=== PATIENT | male | born 1945 | race Caucasian/White ===

== ENCOUNTER → 2016-11-27 | Day surgery (SDC) | payer OTHER ==
[~2016-11-27] MED LIST: BUPIVACAINE HCL PF 0.75% 30 ML VIAL ONE; KETOROLAC TROMETHAMINE 30 MG/ML (IVP) VIAL IV PUSH ONE; LACTATED RINGER'S 1000 ML INJ 1,000 ML IV ONE; LACTATED RINGER'S 1000 ML INJ 1,000 ML ONE; LIDOCAINE 1.5%/EPINEPHrine 1:200,000 PF SOLN 30 ML AMP ONE; MIDAZOLAM HCL 5 MG/5 ML VIAL ONE; ONDANSETRON HCL 4 MG/2 ML VIAL IV PUSH ONE; PROPOFOL 200 MG/20 ML AMP IV ONE; SODIUM CHLORIDE 0.9% INJ 10 ML ONE; ceFAZolin INJ 1,000 MG VIAL ONE
--- NOTE | 2016-11-27 15:21 | RADRPT ---
EXAM DATE/TIME: 11/27/2016 14:58 [place] COMPARISON: No previous studies available for comparison. INDICATIONS : Right achilles tendon repair. MEDICAL HISTORY : None. SURGICAL HISTORY : None. ENCOUNTER: Initial ACUITY: 1 day PAIN SCORE: Non-responsive. LOCATION: Right Heel FINDINGS: Single crosstable lateral view of the right heel region. Calcaneus is intact. Mild plantar calcaneal spurring. CONCLUSION: 1. Intraoperative imaging for Achilles tendon repair. Braulio Calderon MD on November 27, 2016 at 15:18 Board Certified Radiologist. This report was verified electronically.
--- NOTE | 2016-11-27 16:01 | TN ---
cc: LUCAS MOREJON M.D., ALBERT W. M.D. (BAME) DATE OF SURGERY: 11/27/2016 PREOPERATIVE DIAGNOSIS 1. 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 POSTOPERATIVE DIAGNOSIS 1. 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 PROCEDURE Right ankle calcaneus osteectomy; excision of retrocalcaneal bursa; repair Achilles tendon tear. SURGEON Lauren Mendoza MD BEVERAGE SPECIALIST REMINGTON Hua SPECIMEN None. ESTIMATED BLOOD LOSS None. COMPLICATIONS None. ANESTHESIA General, regional. DRAIN None. TOURNIQUET TIME 37 minutes at 250 mmHg. CONDITION Stable. PLAN OF ACTIVITY Per orders. PROCEDURE My assistant grocery store manager REMINGTON Hua was present for the entire surgical case. She was medically necessary for the entire case because of the complexity of the case and to facilitate the performance of the procedure. The VALET PARKER at the back table was not a skill set for this case to manipulate the instruments, e.g., the multiple different types of soft tissue tractors, anchor suture implantation with repairing of the Achilles tendon with decompression. The patient was brought into the operating room and had satisfactory general anesthesia by the Department of Anesthesia.. The patient was placed in the prone position. All pressure points were well-padded. The patient also received regional anesthesia by Dr. Fernanedz. The right lower extremity was prepped and draped in usual sterile manner. The extremity was exsanguinated by Abel wrap. Tourniquet was inflated to 250 mmHg. A midline incision was made over the insertion of the Achilles tendon and the posterior calcaneus. Dissection continued through skin and subcutaneous tissue. The patient was found to have a partial tear involving the Achilles tendon. The patient was also found to have calcific tendonitis within the Achilles tendon at the insertion. The Achilles tendon was resected off of the insertional calcific tendonitis in the posterior calcaneus and off the Cilfford's deformity. This was done sharply and also with elevators. Under fluoroscopic guidance oscillating saw and osteotomes were used for calcaneus osteectomy with removal of the posterior-superior calcaneus. The patient was found to have also excision of the retrocalcaneal bursa. The patient was found to have significant bursitis right retrocalcaneal bursa region. Using the Arthrex anchor suture under fluoroscopic guidance initially the hole was created, then it was tapped and then the anchor screw was inserted into the calcaneus. Four needles with sutures were used, and this very securely reattached the Achilles tendon back to the calcaneus. The "fullness" preoperatively was completely decompressed at the area of the insertion of the Achilles tendon. The wound was closed in multiple layers with 2-0 Vicryl suture. Skin was approximated with interrupted 2-0 Nylon. Tourniquet was deflated. The wound itself was dry. Sterile dressings were applied. The patient tolerated the procedure well and arrived in the recovery room in stable and satisfactory condition. MD BETTIE Manjarrez/TLL /3:23 PM /3:37 PM
== END | disposition home or self-care (01) ==
LOC: ESDC 11:18
PROVIDERS: ATTEND Orthopaedic Surgery Orthopaedic Surgery of the Spine
DX: S86.011A Strain of right Achilles tendon, initial encounter (principal); M76.61 Achilles tendinitis, right leg; M77.31 Calcaneal spur, right foot
CPT/HCPCS: 01472; 01480; 27650; 28118; 64450; 73650; 76000; C1713; J0690; J1885; J2250; J2405; J3010; J7120